=== PATIENT | female | born 1955 | race American Indian/Alaskan Native ===

== ENCOUNTER 2018-01-08 09:55 | Day surgery (SDC) | payer OTHER ==
[2018-01-08] MEDS ORDERED: Midazolam 1 MG/ML 2 ML SDV IV ONE (09:56)
[2018-01-08] MEDS ORDERED: Dexamethasone 4 MG/ML SDV IV ONE (09:56)
[2018-01-08] MEDS ORDERED: Sodium Chloride 0.9% 10 ML Syringe IV ONE (09:56)
[2018-01-08] MEDS ORDERED: Timolol Maleate 0.5% Ophth Soln 5 ML Bottle EYELF ONE (10:30)
[2018-01-08] MEDS ORDERED: Sodium Chloride 0.9% 10 ML Syringe FLUSH PRN (10:30)
[2018-01-08] MEDS ORDERED: Ondansetron 4 MG/2 ML SDV IVPUSH PRN (10:30)
[2018-01-08] MEDS ORDERED: Acetaminophen 325 MG Tab PO PRN (10:30)
[2018-01-08] MEDS ORDERED: Proparacaine 0.5% Ophth Soln 15 ML Bottle EYELF ONE (10:30)
[2018-01-08] MEDS ORDERED: Phenylephrine 10% Ophth Soln 5 ML Bot EYELF PRN (10:30)
[2018-01-08] MEDS ORDERED: Moxifloxacin 0.5% Ophth Soln 3 ML Bottle EYELF ONE (10:30)
[2018-01-08] MEDS ORDERED: Povidone-Iodine 5% Sterile Ophth Soln 30 ML Bottle EYELF ONE ×2 (10:30→11:08)
[2018-01-08] MEDS ORDERED: Cataract Ophth Solution EYELF ONE (10:30)
[2018-01-08] MEDS ORDERED: Phenylephrine 10% Ophth Soln 5 ML Bot EYELF ONE (10:30)
[2018-01-08] MEDS ORDERED: Tetracaine HCl/PF 0.5% 4 ML Bottle EYELF ONE (11:08)
[2018-01-08] MEDS ORDERED: Lidocaine 1% 30 ML SDV INJECT ONE (11:13)
[2018-01-08] MEDS ORDERED: Vancomycin 500 MG SDV EYELF ONE (11:14)
[2018-01-08] MEDS ORDERED: Balanced Salt Solution Plus Ophth Irrig 500 ML Bottle IOCULAR ONE (11:14)
[2018-01-08] MEDS ORDERED: Chondroitin Sulfate/Hyaluronate Sodium Ophth Inj 0.75 ML Syringe EYELF ONE (11:17)
[2018-01-08] MEDS ORDERED: Apraclonidine 0.5% Ophth Soln 5 ML Bot EYELF ONE (11:24)
[2018-01-08] MEDS ORDERED: Dexamethasone/Neomycin/Polymyxin B Ophth Oint 3.5 GM Tube EYELF ONE (11:25)
--- NOTE | 2018-01-08 11:45 | OR ---
DATE: 01/08/2018 PREOPERATIVE DIAGNOSIS: Visually significant mixed cataract, left eye. POSTOPERATIVE DIAGNOSIS: Visually significant mixed cataract, left eye. PROCEDURE: Extracapsular cataract extraction with intraocular lens implant, left eye. ANESTHESIA: Topical/local MAC. COMPLICATIONS: None. INDICATION: Ms. Weir was seen in the clinic with complaints of blurred vision. Her examination revealed visually significant cataract. She is symptomatic and requested cataract surgery. I explained risks including the potential for infection, retinal detachment, loss of vision, and need for additional surgery amongst others. Slit lamp examination reveals mixed nuclear and cortical cataract. We discussed implants, and she has requested a monofocal implant. OPERATIVE DESCRIPTION: After informed consent was obtained and the risks, benefits, and alternatives were explained, the patient was brought to the operative suite and topical anesthesia was administered. The patient was then prepped and draped in the sterile fashion, and attention was placed on the left eye. A sterile lid speculum was placed into the left eye to allow operative exposure. A full-thickness paracentesis was made in the temporal portion of the operative eye. Preservative-free lidocaine 0.1 mL was injected into the anterior chamber followed by viscoelastic. A full-thickness corneal incision was then made into the anterior chamber. A bent needle cystotome was used to create a small sandy in the anterior capsule. The capsulorrhexis forceps was then used to create a 360-degree curvilinear capsulorrhexis. The nucleus was then removed using a phacoemulsification handpiece, and the remaining cortical material was then removed with irrigation and aspiration handpiece. Following removal of the cortical material, the capsular bag was then inspected and noted to be free of any holes or tears. Viscoelastic was then injected into the capsular bag, and the intraocular lens was inserted into the capsular bag. The viscoelastic material was then removed from both the anterior and posterior chambers and from behind the IOL. The lens and capsular bag were then reinspected. The IOL was well centered, and the capsular bag intact. The wound and paracentesis sites were inspected and hydrated with balanced saline solution. Both were found to be self-sealing. The intraocular pressure was assessed digitally and found to be within normal range. A good red reflex was noted at the completion of the procedure. No complications occurred during the operation. At the completion of the procedure, Maxitrol, Voltaren, and Iopidine drops were placed into the operative eye. A sterile eye shield was placed over the operative eye, and the patient was transported to the postoperative recovery area having tolerated the procedure well. Postoperative instructions were given along with a postoperative appointment. The patient was advised to call with any questions or concerns. [facility] /[id number]
[2018-01-08 12:20] VITALS: BP 98/56
== END 2018-01-08 12:25 | disposition home or self-care (01) ==
LOC: DL.SDS 09:55
PROVIDERS: ATTEND Ophthalmology
DX: H25.812 Combined forms of age-related cataract, left eye (principal); I10 Essential (primary) hypertension; F17.210 Nicotine dependence, cigarettes, uncomplicated; E78.5 Hyperlipidemia, unspecified; Z79.899 Other long term (current) drug therapy; Z88.0 Allergy status to penicillin; Z88.5 Allergy status to narcotic agent; Z88.1 Allergy status to other antibiotic agents; Z88.8 Allergy status to other drugs, medicaments and biological substances
CPT/HCPCS: 66984; A9270; J1100; J2250; J3370; J7050

== ENCOUNTER 2018-11-02 00:57 | Emergency (ER) | payer OTHER ==
[2018-11-02 01:06] VITALS: BP 132/72
[2018-11-02] MEDS ORDERED: Ketorolac 30 MG/ML SDV IM ONE (01:23)
--- NOTE | 2018-11-02 01:29 | EDM.PDOC ---
ED HPI GENERAL MEDICAL PROBLEM - General Chief Complaint: Back Pain or Injury Stated Complaint: BACK PAIN [id number] Time Seen by Provider: 11/02/18 01:24 Source of Information: Reports: Patient History Limitations: Reports: No Limitations - History of Present Illness INITIAL COMMENTS - FREE TEXT/NARRATIVE: onset past week. been to PT x2 but seem to make it worse. gives h/o fibromyalgia & arthritis. denies chest pain states pain is on back between shoulders. Bladder Pain Score (Numeric/FACES): 10 - Related Data Allergies Allergy/AdvReac Type Severity Reaction Status Date / Time amoxicillin Allergy Cannot Verified 11/02/18 01:06 Remember codeine Allergy Cannot Verified 11/02/18 01:06 Remember hydroxychloroquine Allergy Itching Verified 11/02/18 01:06 [From Plaquenil] tramadol Allergy Diaphoresis Verified 11/02/18 01:06 Home Meds: Home Meds DULoxetine [Cymbalta] 60 mg PO DAILY 10/11/14 [History] Acetaminophen 650 mg PO Q6H PRN 10/16/14 [History] Cyanocobalamin (Vitamin B-12) [Cyanocobalamin Injection] 1,000 mcg INJECT ASDIRECTED 10/16/14 [History] Fish Oil [place]-3 Fatty Acids 1,000 mg PO DAILY 10/16/14 [History] Hydrocodone-Acetaminophen 5-325 2 tab PO QID PRN 10/16/14 [History] Lidocaine 5% [Lidoderm 5%] 1 patch TOP DAILY 09/06/16 [History] Clobetasol [Clobetasol 0.05%] 1 applic TOP DAILY 12/25/17 [History] Diclofenac Sodium 1 applic TOP DAILY 12/25/17 [History] Gabapentin [Neurontin] 300 mg PO TID 12/25/17 [History] Loratadine 10 mg PO DAILY 12/25/17 [History] Mometasone Furoate [Nasonex] 2 spray NASBOTH DAILY PRN 12/25/17 [History] atorvaSTATin [Lipitor] 20 mg PO BEDTIME 12/25/17 [History] cycloSPORINE [Restasis] 1 drop EYEBOTH BID 12/25/17 [History] Lisinopril/Hydrochlorothiazide [Lisinopril-HCTZ 10-12.5 MG] 1 tab PO DAILY 12/30 [History] Past Medical History HEENT History: Reports: Cataract, Impaired Vision Cardiovascular History: Reports: High Cholesterol, Hypertension Respiratory History: Reports: None Gastrointestinal History: Reports: None Genitourinary History: Reports: None 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 Neurological History: Reports: None Psychiatric History: Reports: None Endocrine/Metabolic History: Reports: None Hematologic History: Reports: B12 Deficiency Immunologic History: Reports: SLE, Other (See Below) Other Immunologic History: Lupus test #'s were high. Oncologic (Cancer) History: Reports: None Dermatologic History: Reports: None - Infectious Disease History Infectious Disease History: Reports: Chicken Pox - Past Surgical History Head Surgeries/Procedures: Reports: None HEENT Surgical History: Reports: Cataract Surgery, Other (See Below) Other HEENT Surgeries/Procedures: eye lid surg Cardiovascular Surgical History: Reports: None Respiratory Surgical History: Reports: None GI Surgical History: Reports: Appendectomy Female Surgical History: Reports: Breast Biopsy, Hysterectomy Musculoskeletal Surgical History: Reports: None Dermatological Surgical History: Reports: None Social & Family History - Family History Family Medical History: Noncontributory - Tobacco Use Smoking Status *Q: Heavy Tobacco Smoker Years of Tobacco use: 20 Packs/Tins Daily: 0.5 - Caffeine Use Caffeine Use: Reports: Coffee Other Caffeine Use: 4 cups daily - Recreational Drug Use Recreational Drug Use: No ED ROS GENERAL - Review of Systems Review Of Systems: ROS reveals no pertinent complaints other than HPI. ED EXAM, UPPER BACK/NECK PAIN - Physical Exam Exam: See Below Exam Limited By: No Limitations General Appearance: Alert, WD/WN, Mild Distress, Other (discomfort) Ears Exam: Hearing Grossly Normal Throat/Mouth Exam: Normal Voice, No Airway Compromise Head Exam: Atraumatic Neck Exam: Full Range of Motion, Normal Alignment Nexus Criteria: No: Posterior, Midline Cervical Tenderness, Evidence of Intoxication, Altered Level of Consciousness, Focal Neurological Deficit, Painful Distraction Injuries Cardiovascular/Respiratory: Regular Rate, Rhythm, No Respiratory Distress GI/Abdominal: Soft, Non-Tender Back Exam: Muscle Spasm, Paraspinal Tenderness, Other (interscap region) Neurologic: No Motor/Sensory Deficits, Alert, Oriented x 3 Psychiatric: Tearful Skin Exam: Normal Color, Warm/Dry Lymphatic: No Adenopathy Course - Vital Signs Last Recorded V/S: Last Vital Signs Temp 36.3 C 11/02/18 01:02 Pulse 66 11/02/18 01:02 Resp 16 11/02/18 01:02 BP 132/72 11/02/18 01:02 Pulse Ox 97 11/02/18 01:02 - Orders/Labs/Meds Orders: Active Orders 24 hr Category Date Time Status Orphenadrine [Norflex] Med 11/02/18 01:30 Active 60 mg IM Q12H Medication Orders Orphenadrine Citrate (Norflex) 60 mg IM Q12H ONESIMO Last Admin: 11/02/18 01:31 Dose: 60 mg Meds: Medications Generic Name Dose Route Start Last Admin Trade Name Freq PRN Reason Stop Dose Admin Orphenadrine Citrate 60 mg 11/02/18 01:30 11/02/18 01:31 Norflex IM 60 mg Q12H ONESIMO Administration Discontinued Medications Generic Name Dose Route Start Last Admin Trade Name Freq PRN Reason Stop Dose Admin Ketorolac Tromethamine 30 mg 11/02/18 01:23 11/02/18 01:32 Toradol IM 11/02/18 01:24 30 mg ONETIME ONE Administration Departure - Departure Time of Disposition: 01:40 Disposition: Home, Self-Care 01 Condition: Fair Clinical Impression: Spasm of back muscles - Discharge Information Instructions: Muscle Cramps and Spasms, [id number] Forms: ED Department Discharge Additional Instructions: 1) try ice or heat to sore areas 2) follow up at clinic 3) recheck as needed - My Orders Last 24 Hours: My Active Orders 11/02/18 01:30 Orphenadrine [Norflex] 60 mg IM Q12H - Assessment/Plan Last 24 Hours: My Active Orders 11/02/18 01:30 Orphenadrine [Norflex] 60 mg IM Q12H
== END 2018-11-02 01:40 | disposition home or self-care (01) ==
LOC: DL.ED 00:57
DX: M62.830 Muscle spasm of back (principal); I10 Essential (primary) hypertension; F17.210 Nicotine dependence, cigarettes, uncomplicated; Z88.5 Allergy status to narcotic agent; Z88.8 Allergy status to other drugs, medicaments and biological substances; Z88.1 Allergy status to other antibiotic agents; Z79.899 Other long term (current) drug therapy
CPT/HCPCS: 96372; 99283; J1885; J2360

== ENCOUNTER 2019-07-30 15:30 | Emergency (ER) | payer OTHER ==
--- NOTE | 2019-07-30 16:03 | EDM.PDOC ---
ED HPI GENERAL MEDICAL PROBLEM - General Stated Complaint: BACK PAIN Time Seen by Provider: 07/30/19 15:45 Source of Information: Reports: Patient History Limitations: Reports: No Limitations - History of Present Illness INITIAL COMMENTS - FREE TEXT/NARRATIVE: This 64 yo female patient reports to the ED with lower back pain that started this morning. The patient reports she has chronic low back pain and fibromyalgia. The patient currently takes Hydrocodone and Gabapentin. The patient reports she has an appointment with pain management next week. The patient reports her current pain is higher in her back than normal. The patient reports no recent injuries. The patient did not attempt to get into the clinic. The patient reports no urinary frequency, pain or hesitancy. Onset: Today Onset Date: 07/30/19 Onset Time: 10:30 Duration: Intermittent Location: Reports: Back Quality: Reports: Ache Severity: Moderate Improves with: Reports: None Worsens with: Reports: None Context: Reports: Other Associated Symptoms: Reports: No Other Symptoms - Related Data Allergies Allergy/AdvReac Type Severity Reaction Status Date / Time amoxicillin Allergy Cannot Verified 11/02/18 01:06 Remember clavulanic acid Allergy Nausea Verified 01/08/19 08:23 [From Augmentin] codeine Allergy Cannot Verified 11/02/18 01:06 Remember hydroxychloroquine Allergy Itching Verified 11/02/18 01:06 [From Plaquenil] simvastatin [From Zocor] Allergy Itching Verified 01/08/19 08:23 tramadol Allergy Diaphoresis Verified 11/02/18 01:06 Home Meds: Home Meds DULoxetine [Cymbalta] 60 mg PO DAILY 10/11/14 [History] Acetaminophen 650 mg PO Q6H PRN 10/16/14 [History] Cyanocobalamin (Vitamin B-12) [Cyanocobalamin Injection] 1,000 mcg INJECT ASDIRECTED 10/16/14 [History] Fish Oil [place]-3 Fatty Acids 1,000 mg PO DAILY 10/16/14 [History] Hydrocodone-Acetaminophen 5-325 2 tab PO QID PRN 10/16/14 [History] Lidocaine 5% [Lidoderm 5%] 1 patch TOP DAILY 09/06/16 [History] Clobetasol [Clobetasol 0.05%] 1 applic TOP DAILY 12/25/17 [History] Diclofenac Sodium 1 applic TOP DAILY 12/25/17 [History] Gabapentin [Neurontin] 300 mg PO TID 12/25/17 [History] Loratadine 10 mg PO DAILY 12/25/17 [History] Mometasone Furoate [Nasonex] 2 spray NASBOTH DAILY PRN 12/25/17 [History] atorvaSTATin [Lipitor] 20 mg PO BEDTIME 12/25/17 [History] cycloSPORINE [Restasis] 1 drop EYEBOTH BID 12/25/17 [History] Lisinopril/Hydrochlorothiazide [Lisinopril-HCTZ 10-12.5 MG] 1 tab PO DAILY 12/30 [History] Past Medical History HEENT History: Reports: Cataract, Impaired Vision Cardiovascular History: Reports: High Cholesterol, Hypertension Respiratory History: Reports: None Gastrointestinal History: Reports: None Genitourinary History: Reports: None 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 Neurological History: Reports: None Psychiatric History: Reports: None Endocrine/Metabolic History: Reports: None Hematologic History: Reports: B12 Deficiency Immunologic History: Reports: SLE, Other (See Below) Other Immunologic History: Lupus test #'s were high. Oncologic (Cancer) History: Reports: None Dermatologic History: Reports: None - Infectious Disease History Infectious Disease History: Reports: Chicken Pox - Past Surgical History Head Surgeries/Procedures: Reports: None HEENT Surgical History: Reports: Cataract Surgery, Other (See Below) Other HEENT Surgeries/Procedures: eye lid surg Cardiovascular Surgical History: Reports: None Respiratory Surgical History: Reports: None GI Surgical History: Reports: Appendectomy Female Surgical History: Reports: Breast Biopsy, Hysterectomy Musculoskeletal Surgical History: Reports: None Dermatological Surgical History: Reports: None Social & Family History - Family History Family Medical History: Noncontributory - Caffeine Use Caffeine Use: Reports: Coffee Other Caffeine Use: 4 cups daily ED ROS GENERAL - Review of Systems Review Of Systems: Comprehensive ROS is negative, except as noted in HPI. ED EXAM,LOWER BACK PAIN/INJURY - Physical Exam Exam: See Below Exam Limited By: No Limitations General Appearance: Alert, WD/WN, Mild Distress Eye Exam: Bilateral Eye: EOMI, Normal Inspection, PERRL Ears: Normal External Exam, Normal Canal, Hearing Grossly Normal, Normal TMs Nose: Normal Inspection, Normal Mucosa, No Blood Throat/Mouth: Normal Inspection, Normal Lips, Normal Teeth, Normal Gums, Normal Oropharynx, Normal Voice, No Airway Compromise Head: Atraumatic, Normocephalic Neck: Normal Inspection, Supple, Non-Tender, Full Range of Motion Respiratory/Chest: No Respiratory Distress, Lungs Clear, Normal Breath Sounds, No Accessory Muscle Use, Chest Non-Tender Cardiovascular: Normal Peripheral Pulses, Regular Rate, Rhythm, No Edema, No Gallop, No JVD, No Murmur, No Rub GI/Abdominal: Normal Bowel Sounds, Soft, Non-Tender, No Organomegaly, No Distention, No Abnormal Bruit, No Mass (Female) Exam: Deferred Rectal (Female) Exam: Deferred Back Exam: Vertebral Tenderness (mid back ) Extremities: Normal Inspection, Normal Range of Motion, Non-Tender, No Pedal Edema, Normal Capillary Refill Neurological: Alert, Normal Mood/Affect, Normal Dorsiflexion, CN II-XII Intact, Normal Plantar Flexion, Normal Gait, Normal Reflexes, No Motor/Sensory Deficits , Oriented x 3 Psychiatric: Normal Affect, Normal Mood Skin Exam: Warm, Dry, Intact, Normal Color, No Rash Lymphatic: No Adenopathy Course - Orders/Labs/Meds Orders: Active Orders 24 hr Category Date Time Status COMPREHENSIVE METABOLIC PN,CMP [CHEM] Urgent Lab 07/30/19 15:32 Ordered DRUG SCREEN URINE BIORAD [URCHEM] Stat Lab 07/30/19 15:36 Ordered UA RFX CODY AND CULT IF INDIC [URIN] Urgent Lab 07/30/19 15:32 Ordered Labs: Laboratory Tests 07/30/19 Range/Units 15:45 WBC 8.5 (5.0-10.0) 10^3/uL RBC 4.58 (4.2-5.4) 10^6/uL Hgb 13.4 (12.0-16.0) g/dL Hct 41.1 (37.0-47.0) % MCV 89.7 D (80-100) fL MCH 29.3 (27.0-34.0) pg MCHC 32.6 L (33.0-35.0) g/dL Plt Count 175 D (150-450) 10^3/uL Neut % (Auto) 61.7 (42.2-75.2) % Lymph % (Auto) 29.4 (20.5-50.1) % [place] % (Auto) 6.1 (2-8) % Eos % (Auto) 2.7 (1.0-3.0) % Baso % (Auto) 0.1 (0.0-1.0) % Departure - Departure Time of Disposition: 16:52 Disposition: Home, Self-Care 01 Condition: Fair Clinical Impression: Acute exacerbation of chronic low back pain - Discharge Information *PRESCRIPTION DRUG MONITORING PROGRAM REVIEWED*: Not Applicable *COPY OF PRESCRIPTION DRUG MONITORING REPORT IN PATIENT NAI: Not Applicable Instructions: Acute Back Pain, Adult, Chronic Back Pain, [id number] Care Plan Goals: The patient was advised of the examination results during the visit. The patient was discharged with scripts for Prednisone (20 mg) #10 to take 2 by mouth for 5 days. The patient should continue with her current medications as prescribed. If the patient has any additional symptoms or concerns, the patient should either return to the emergency department or visit his primary care facility. - My Orders Last 24 Hours: My Active Orders 07/30/19 15:32 COMPREHENSIVE METABOLIC PN,CMP [CHEM] Urgent UA RFX CODY AND CULT IF INDIC [URIN] Urgent 07/30/19 15:36 DRUG SCREEN URINE BIORAD [URCHEM] Stat - Assessment/Plan Last 24 Hours: My Active Orders 07/30/19 15:32 COMPREHENSIVE METABOLIC PN,CMP [CHEM] Urgent UA RFX CODY AND CULT IF INDIC [URIN] Urgent 07/30/19 15:36 DRUG SCREEN URINE BIORAD [URCHEM] Stat
[2019-07-30 16:10] LABS: ANION GAP 11.7; CHLORIDE,CL 104 mmol/L (101-111); SODIUM,NA 136 mmol/L (135-145)
--- NOTE | 2019-07-30 16:30 | CR ---
EXAMINATION: Lumbar Spine 2 or 3V SEX: Female AGE: 64 years CLINICAL HISTORY: 64-year-old female complaining of low back pain. Interpretation: Generalized osteopenia consistent with age and gender. Some marginal spondylosis. Intervertebral disc space narrowing L1-2 with endplate sclerosis and marginal spondylosis (subtle relative narrowing of the L3-4 and L5-S1 levels (. No sign of congenital abnormality, pathologic skeletal lesion, lumbar fracture or dislocation. Symmetric normal spacing of the SI and hip joint without arthritic degenerative change. 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
[2019-07-30 17:52] VITALS: BP 125/74; PULSE 86
== END 2019-07-30 16:59 | disposition home or self-care (01) ==
LOC: DL.ED 15:30
DX: M54.5 Low back pain (principal); G89.29 Other chronic pain; I10 Essential (primary) hypertension; E78.00 Pure hypercholesterolemia, unspecified; Z79.899 Other long term (current) drug therapy; Z88.5 Allergy status to narcotic agent; Z88.1 Allergy status to other antibiotic agents; Z88.6 Allergy status to analgesic agent
CPT/HCPCS: 36415; 72100; 80053; 80305-QW; 81001; 85025; 99283; 99283-25

== ENCOUNTER 2019-11-30 19:26 | Emergency (ER) | payer OTHER ==
[2019-11-30 20:03] VITALS: BP 118/62; PULSE 97
[2019-11-30] MEDS ORDERED: Lidocaine 1% 30 ML SDV INJECT ONE (21:24)
[2019-11-30] MEDS ORDERED: Doxycycline 100 MG Cap PO ONE (21:24)
--- NOTE | 2019-11-30 22:04 | EDM.PDOC ---
ED HPI GENERAL MEDICAL PROBLEM - General Chief Complaint: Skin Complaint Stated Complaint: finger infected Time Seen by Provider: 11/30/19 20:20 Source of Information: Reports: Patient History Limitations: Reports: No Limitations - History of Present Illness INITIAL COMMENTS - FREE TEXT/NARRATIVE: ED with c/o 2 day hx of infected finger ( right index). Denies injury has been soaking without improvement. States tried 2 of her hydrocodone this elayne to relieve pain and didn't help. Denies previous skin infections. Non smoker, Denies Diabetes hx. No fever or chills. Right Finger-Index Pain Score (Numeric/FACES): 8 - Related Data Allergies Allergy/AdvReac Type Severity Reaction Status Date / Time amoxicillin Allergy Cannot Verified 11/30/19 19:47 Remember clavulanic acid Allergy Nausea Verified 11/30/19 19:47 [From Augmentin] codeine Allergy Cannot Verified 11/30/19 19:47 Remember hydroxychloroquine Allergy Itching Verified 11/30/19 19:47 [From Plaquenil] simvastatin [From Zocor] Allergy Itching Verified 11/30/19 19:47 tramadol Allergy Diaphoresis Verified 11/30/19 19:47 Home Meds: Home Meds DULoxetine [Cymbalta] 60 mg PO DAILY 10/11/14 [History] Acetaminophen 650 mg PO Q6H PRN 10/16/14 [History] Cyanocobalamin (Vitamin B-12) [Cyanocobalamin Injection] 1,000 mcg INJECT ASDIRECTED 10/16/14 [History] Fish Oil [place]-3 Fatty Acids 1,000 mg PO DAILY 10/16/14 [History] Hydrocodone-Acetaminophen 5-325 2 tab PO QID PRN 10/16/14 [History] Lidocaine 5% [Lidoderm 5%] 1 patch TOP DAILY 09/06/16 [History] Clobetasol [Clobetasol 0.05%] 1 applic TOP DAILY 12/25/17 [History] Diclofenac Sodium 1 applic TOP DAILY 12/25/17 [History] Gabapentin [Neurontin] 300 mg PO TID 12/25/17 [History] Loratadine 10 mg PO DAILY 12/25/17 [History] Mometasone Furoate [Nasonex] 2 spray NASBOTH DAILY PRN 12/25/17 [History] atorvaSTATin [Lipitor] 20 mg PO BEDTIME 12/25/17 [History] cycloSPORINE [Restasis] 1 drop EYEBOTH BID 12/25/17 [History] Lisinopril/Hydrochlorothiazide [Lisinopril-HCTZ 10-12.5 MG] 1 tab PO DAILY 12/30 [History] Past Medical History HEENT History: Reports: Cataract, Impaired Vision Cardiovascular History: Reports: High Cholesterol, Hypertension Respiratory History: Reports: None Gastrointestinal History: Reports: None Genitourinary History: Reports: None 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 Neurological History: Reports: None Psychiatric History: Reports: None Endocrine/Metabolic History: Reports: None Hematologic History: Reports: B12 Deficiency Immunologic History: Reports: SLE, Other (See Below) Other Immunologic History: Lupus test #'s were high. Oncologic (Cancer) History: Reports: None Dermatologic History: Reports: None - Infectious Disease History Infectious Disease History: Reports: Chicken Pox - Past Surgical History Head Surgeries/Procedures: Reports: None HEENT Surgical History: Reports: Cataract Surgery, Other (See Below) Other HEENT Surgeries/Procedures: eye lid surg Cardiovascular Surgical History: Reports: None Respiratory Surgical History: Reports: None GI Surgical History: Reports: Appendectomy Female Surgical History: Reports: Breast Biopsy, Section, Hysterectomy Musculoskeletal Surgical History: Reports: None Dermatological Surgical History: Reports: None Social & Family History - Family History Family Medical History: Noncontributory - Tobacco Use Smoking Status *Q: Current Every Day Smoker Years of Tobacco use: 25 Packs/Tins Daily: 0.5 - Caffeine Use Caffeine Use: Reports: None Other Caffeine Use: 4 cups daily - Recreational Drug Use Recreational Drug Use: No ED ROS GENERAL - Review of Systems Review Of Systems: Comprehensive ROS is negative, except as noted in HPI. ED EXAM, SKIN/RASH Exam: See Below Exam Limited By: No Limitations General Appearance: Alert, Mild Distress Eye Exam: Bilateral Eye: EOMI Ears: Normal External Exam Nose: Normal Inspection Throat/Mouth: Normal Inspection Head: Atraumatic, Normocephalic Neck: Normal Inspection Respiratory/Chest: No Respiratory Distress Cardiovascular: Normal Peripheral Pulses, Regular Rate, Rhythm Extremities: Increased Warmth (distal right index) Neurological: Alert, Oriented, Normal Cognition Psychiatric: Normal Affect, Normal Mood Skin: Warm, Dry, Other (redness distal right index finger, lower lateral nail bed loose.) Characteristics: Bullous, Erythematous Associated features: Warmth, Tenderness, Swelling (mild). No: Crusting ED SKIN PROCEDURES - I&D Skin Prep: Providone-Iodine (Betadine) Local Anesthesia: Lidocaine: 1% Plain Local Anesthetic Volume: 1cc Area Incised With: 15 Blade Drainage: Purulent Probed to Break Up Loculations: No Sterile Dressing: Adhesive Dressing Complications: No Course - Vital Signs Last Recorded V/S: Last Vital Signs Temp 97.5 F 11/30/19 19:47 Pulse 97 11/30/19 19:47 Resp 16 11/30/19 19:47 BP 118/62 11/30/19 19:47 Pulse Ox 98 11/30/19 19:47 - Orders/Labs/Meds Orders: Active Orders 24 hr Category Date Time Status Fingers Second Digit Rt F6 [CR] Urgent Exams 11/30/19 21:23 Taken CULTURE WOUND [RM] Stat Lab 11/30/19 21:47 Received Meds: Medications Discontinued Medications Generic Name Dose Route Start Last Admin Trade Name José Miguelq PRN Reason Stop Dose Admin Doxycycline Hyclate 100 mg 11/30/19 21:24 11/30/19 21:34 Vibramycin PO 11/30/19 21:25 100 mg ONETIME ONE Administration Lidocaine HCl 30 ml 11/30/19 21:24 11/30/19 21:34 Xylocaine-Mpf 1% INJECT 11/30/19 21:25 30 ml ONETIME ONE Administration Departure - Departure Time of Disposition: 21:56 Disposition: Home, Self-Care 01 Condition: Good Clinical Impression: Infection of fingernail of right hand - Discharge Information *PRESCRIPTION DRUG MONITORING PROGRAM REVIEWED*: No Instructions: Fingertip Infection, Paronychia, [id number] Forms: ED Department Discharge Additional Instructions: warm soaks with soapy water 4 times daily keep area covered elevate slightly to decrease throbbing recheck clinic later week sooner if increased redness and swelling doxycycline 100mg one twice daily for 10 days Sepsis Event Note - Evaluation Sepsis Screening Result: No Definite Risk - Focused Exam Vital Signs: Vital Signs Temp Pulse Resp BP Pulse Ox 11/30/19 19:47 97.5 F 97 16 118/62 98 Date Exam was Performed: 12/01/19 Time Exam was Performed: 01:44 - My Orders Last 24 Hours: My Active Orders 11/30/19 21:23 Fingers Second Digit Rt F6 [CR] Urgent 11/30/19 21:47 CULTURE WOUND [RM] Stat - Assessment/Plan Last 24 Hours: My Active Orders 11/30/19 21:23 Fingers Second Digit Rt F6 [CR] Urgent 11/30/19 21:47 CULTURE WOUND [RM] Stat
== END 2019-11-30 22:02 | disposition home or self-care (01) ==
LOC: DL.ED 19:26
DX: L03.011 Cellulitis of right finger (principal); E78.00 Pure hypercholesterolemia, unspecified; I10 Essential (primary) hypertension; M32.9 Systemic lupus erythematosus, unspecified; F17.210 Nicotine dependence, cigarettes, uncomplicated; Z88.1 Allergy status to other antibiotic agents; Z88.8 Allergy status to other drugs, medicaments and biological substances; Z88.5 Allergy status to narcotic agent
CPT/HCPCS: 26010; 73140; 87070; 87077; 87186; 99283; A9270; J2001

== ENCOUNTER 2019-12-12 23:58 | Emergency (ER) | payer OTHER ==
[2019-12-13 00:11] VITALS: BP 134/57; PULSE 73
[2019-12-13] MEDS ORDERED: methylPREDNISolone Sodium Succinate 125 MG/2 ML SDV IVPUSH ONE (00:46)
--- NOTE | 2019-12-13 01:05 | EDM.PDOC ---
ED HPI GENERAL MEDICAL PROBLEM - General Chief Complaint: Allergic Reaction Stated Complaint: REACTION TO MEDICATION Time Seen by Provider: 12/13/19 01:02 Source of Information: Reports: Patient History Limitations: Reports: No Limitations - History of Present Illness INITIAL COMMENTS - FREE TEXT/NARRATIVE: took one dose of bactrim for finger infection and broke out in itchy rash all over. 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 Hand Pain Score (Numeric/FACES): 3 - Related Data Allergies Allergy/AdvReac Type Severity Reaction Status Date / Time amoxicillin Allergy Cannot Verified 11/30/19 19:47 Remember clavulanic acid Allergy Nausea Verified 11/30/19 19:47 [From Augmentin] codeine Allergy Cannot Verified 11/30/19 19:47 Remember hydroxychloroquine Allergy Itching Verified 11/30/19 19:47 [From Plaquenil] simvastatin [From Zocor] Allergy Itching Verified 11/30/19 19:47 Sulfa (Sulfonamide Allergy Itching Verified 12/13/19 00:11 Antibiotics) tramadol Allergy Diaphoresis Verified 11/30/19 19:47 Home Meds: Home Meds DULoxetine [Cymbalta] 60 mg PO DAILY 10/11/14 [History] Acetaminophen 650 mg PO Q6H PRN 10/16/14 [History] Fish Oil [place]-3 Fatty Acids 1,000 mg PO DAILY 10/16/14 [History] Hydrocodone-Acetaminophen 5-325 1 tab PO QID PRN 10/16/14 [History] Lidocaine 5% [Lidoderm 5%] 1 patch TOP DAILY 09/06/16 [History] Clobetasol [Clobetasol 0.05%] 1 applic TOP DAILY 12/25/17 [History] Gabapentin [Neurontin] 300 mg PO TID 12/25/17 [History] Mometasone Furoate [Nasonex] 2 spray NASBOTH DAILY PRN 12/25/17 [History] atorvaSTATin [Lipitor] 20 mg PO BEDTIME 12/25/17 [History] cycloSPORINE [Restasis] 1 drop EYEBOTH BID 12/25/17 [History] Lisinopril/Hydrochlorothiazide [Lisinopril-HCTZ 10-12.5 MG] 1 tab PO DAILY 12/30 [History] Celecoxib [CeleBREX] 200 mg PO BID 12/13/19 [History] Cholecalciferol (Vitamin D3) [Vitamin D3] 1,000 unit PO DAILY 12/13/19 [History] Past Medical History HEENT History: Reports: Cataract, Impaired Vision Cardiovascular History: Reports: High Cholesterol, Hypertension Respiratory History: Reports: None Gastrointestinal History: Reports: None Genitourinary History: Reports: None 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 Neurological History: Reports: None Psychiatric History: Reports: None Endocrine/Metabolic History: Reports: None Hematologic History: Reports: B12 Deficiency, Blood Transfusion(s) Immunologic History: Reports: SLE, Other (See Below) Other Immunologic History: Lupus test #'s were high. Oncologic (Cancer) History: Reports: None Dermatologic History: Reports: None, Psoriasis - Infectious Disease History Infectious Disease History: Reports: Chicken Pox - Past Surgical History Head Surgeries/Procedures: Reports: None HEENT Surgical History: Reports: Cataract Surgery, Other (See Below) Other HEENT Surgeries/Procedures: eye lid surg Cardiovascular Surgical History: Reports: None Respiratory Surgical History: Reports: None GI Surgical History: Reports: Appendectomy Female Surgical History: Reports: Breast Biopsy, Section, Hysterectomy Musculoskeletal Surgical History: Reports: None Dermatological Surgical History: Reports: None Social & Family History - Family History Family Medical History: Noncontributory - Tobacco Use Smoking Status *Q: Current Every Day Smoker Years of Tobacco use: 20 Packs/Tins Daily: 0.5 - Caffeine Use Caffeine Use: Reports: Coffee Other Caffeine Use: 4 cups daily - Recreational Drug Use Recreational Drug Use: No ED ROS ALLERGIC REACTION - Review of Systems Review Of Systems: Comprehensive ROS is negative, except as noted in HPI. ED EXAM GENERAL NO PERIP PULSE - Physical Exam Exam: See Below Exam Limited By: No Limitations General Appearance: Alert, WD/WN, Mild Distress, Other (generalized itch) Ears: Hearing Grossly Normal Throat/Mouth: Normal Voice, No Airway Compromise Head: Atraumatic Neck: Non-Tender, Full Range of Motion Respiratory/Chest: No Respiratory Distress, Lungs Clear, Normal Breath Sounds Cardiovascular: Regular Rate, Rhythm GI/Abdominal: Soft, Non-Tender Neurological: Alert, Oriented, Normal Cognition, Normal Gait, No Motor/Sensory Deficits Psychiatric: Tearful Skin Exam: Rash. No: Excoriations, Lymphangitis Lymphatic: No Adenopathy Course - Vital Signs Last Recorded V/S: Last Vital Signs Temp 35.7 C L 12/13/19 00:03 Pulse 73 12/13/19 00:03 Resp 14 12/13/19 00:03 BP 134/57 L 12/13/19 00:03 Pulse Ox 100 12/13/19 00:03 - Orders/Labs/Meds Meds: Medications Discontinued Medications Generic Name Dose Route Start Last Admin Trade Name Caterina PRN Reason Stop Dose Admin Clindamycin HCl 150 mg 12/13/19 01:10 12/13/19 01:18 Cleocin PO 12/13/19 01:11 150 mg ONETIME ONE Administration Methylprednisolone Sodium Succinate 125 mg 12/13/19 00:46 12/13/19 00:52 Solu-Medrol IVPUSH 12/13/19 00:47 125 mg ONETIME ONE Administration Departure - Departure Time of Disposition: 01:20 Disposition: Home, Self-Care 01 Condition: Good Clinical Impression: Medication reaction Qualifiers: Encounter type: initial encounter Qualified Code(s): T50.905A - Adverse effect of unspecified drugs, medicaments and biological substances, initial encounter - Discharge Information Instructions: Drug Allergy, [id number] Referrals: PCP,None [Ordering Only Provider] - Forms: ED Department Discharge Additional Instructions: 1) do not take sulphur meds 2) continue benadryl for itch 3) follow up at clinic 4) stop doxycycline rx given; medrol dospak clindamycin 150mg qid x 40 Sepsis Event Note - Evaluation Sepsis Screening Result: No Definite Risk - Focused Exam Date Exam was Performed: 12/13/19 Time Exam was Performed: 18:53
[2019-12-13] MEDS ORDERED: Clindamycin HCl 150 MG Cap PO ONE (01:10)
== END 2019-12-13 01:20 | disposition home or self-care (01) ==
LOC: DL.ED 23:58
DX: L27.0 Generalized skin eruption due to drugs and medicaments taken internally (principal); T36.8X5A Adverse effect of other systemic antibiotics, initial encounter; E78.00 Pure hypercholesterolemia, unspecified; I10 Essential (primary) hypertension; M19.90 Unspecified osteoarthritis, unspecified site; M32.9 Systemic lupus erythematosus, unspecified; F17.210 Nicotine dependence, cigarettes, uncomplicated; Z88.1 Allergy status to other antibiotic agents; Z88.5 Allergy status to narcotic agent; Z88.2 Allergy status to sulfonamides; Z79.899 Other long term (current) drug therapy
CPT/HCPCS: 96374; 99283; A9270; J2930

== ENCOUNTER 2020-04-23 21:10 | Emergency (ER) | payer OTHER ==
[2020-04-23] MEDS ORDERED: Doxycycline Monohydrate 100 MG Cap PO ONE (21:11)
[2020-04-23 21:17] VITALS: BP 116/73; PULSE 99
[2020-04-23 21:57] LABS: ANION GAP 11.8 mEq/L (7-13); CHLORIDE,CL 105 mmol/L (98-107); SODIUM,NA 140 mmol/L (136-145)
[2020-04-23] MEDS ORDERED: diphenhydrAMINE 50 MG/ML SDV IVPUSH ONE (22:01)
[2020-04-23] MEDS ORDERED: fentaNYL 100 MCG/2 ML SDV IVPUSH ONE (22:02)
[2020-04-23] MEDS ORDERED: Bacitracin Oint 1 GM U/D Packet TOP ONE (22:03)
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
[2020-04-24] MEDS ORDERED: Doxycycline Monohydrate 100 MG Cap ONE (00:10)
== END 2020-04-24 00:13 | disposition home or self-care (01) ==
LOC: DL.ED 21:10
DX: T22.221A Burn of second degree of right elbow, initial encounter (principal); T22.20XA Burn of second degree of shoulder and upper limb, except wrist and hand, unspecified site, initial encounter; L08.9 Local infection of the skin and subcutaneous tissue, unspecified; I10 Essential (primary) hypertension; E78.00 Pure hypercholesterolemia, unspecified; Z88.1 Allergy status to other antibiotic agents; Z88.5 Allergy status to narcotic agent; Z88.2 Allergy status to sulfonamides; Z88.8 Allergy status to other drugs, medicaments and biological substances; F17.210 Nicotine dependence, cigarettes, uncomplicated; Z86.19 Personal history of other infectious and parasitic diseases; Z90.49 Acquired absence of other specified parts of digestive tract; Z90.710 Acquired absence of both cervix and uterus; Z79.899 Other long term (current) drug therapy; Z86.14 Personal history of Methicillin resistant Staphylococcus aureus infection; X13.1XXA Other contact with steam and other hot vapors, initial encounter
CPT/HCPCS: 16020; 36415; 80053; 83605; 85025; 87040; 87070; 87077; 87186; 87205; 96365; 96375; 99283; A9270; J1200; J3010; J3370; J7050

== ENCOUNTER 2021-07-08 12:56 | Emergency (ER) | payer OTHER ==
[2021-07-08 13:14] VITALS: BP 97/64; PULSE 88
--- NOTE | 2021-07-08 13:22 | EDM.PDOC ---
ED HPI GENERAL MEDICAL PROBLEM - General Chief Complaint: Respiratory Problem Stated Complaint: SOB Time Seen by Provider: 07/08/21 13:19 Source of Information: Reports: Patient, RN, RN Notes Reviewed History Limitations: Reports: No Limitations - History of Present Illness INITIAL COMMENTS - FREE TEXT/NARRATIVE: Pt presents to ED via POV with c/o SOB and cough. Pt states symptoms started yesterday. She says she has been coughing green phlegm. Pt does attest to chills. Denies fever, chest pain, lightheadedness, increasing edema, or orthopnea. Has been exposed to family member(s) with respiratory illness symptoms. Pt states she has been taking her pain pills without relief of body aches. Onset Date: 07/07/21 Duration: Constant Location: Reports: Chest, Generalized Quality: Reports: Ache Severity: Moderate Improves with: Reports: None Worsens with: Reports: None Associated Symptoms: Reports: No Other Symptoms - Related Data Allergies Allergy/AdvReac Type Severity Reaction Status Date / Time amoxicillin Allergy Cannot Verified 07/08/21 13:11 Remember clavulanic acid Allergy Nausea Verified 07/08/21 13:11 [From Augmentin] codeine Allergy Cannot Verified 07/08/21 13:11 Remember hydroxychloroquine Allergy Itching Verified 07/08/21 13:11 [From Plaquenil] simvastatin [From Zocor] Allergy Itching Verified 07/08/21 13:11 Sulfa (Sulfonamide Allergy Itching Verified 07/08/21 13:11 Antibiotics) tramadol Allergy Diaphoresis Verified 07/08/21 13:11 Home Meds: Home Meds DULoxetine [Cymbalta] 60 mg PO DAILY 10/11/14 [History] Acetaminophen 650 mg PO Q6H PRN 10/16/14 [History] Fish Oil [place]-3 Fatty Acids 1,000 mg PO DAILY 10/16/14 [History] Hydrocodone-Acetaminophen 5-325 1 tab PO QID PRN 10/16/14 [History] Lidocaine 5% [Lidoderm 5%] 1 patch TOP DAILY 09/06/16 [History] Clobetasol [Clobetasol 0.05%] 1 applic TOP DAILY 12/25/17 [History] Gabapentin [Neurontin] 300 mg PO TID 12/25/17 [History] Mometasone Furoate [Nasonex] 2 spray NASBOTH DAILY PRN 12/25/17 [History] atorvaSTATin [Lipitor] 20 mg PO BEDTIME 12/25/17 [History] cycloSPORINE [Restasis] 1 drop EYEBOTH BID 12/25/17 [History] Lisinopril/Hydrochlorothiazide [Lisinopril-HCTZ 10-12.5 MG] 1 tab PO DAILY 12/30/17 [History] Celecoxib [CeleBREX] 200 mg PO BID 12/13/19 [History] Cholecalciferol (Vitamin D3) [Vitamin D3] 1,000 unit PO DAILY 12/13/19 [History] Past Medical History HEENT History: Reports: Cataract, Impaired Vision Cardiovascular History: Reports: High Cholesterol, Hypertension Respiratory History: Reports: None Gastrointestinal History: Reports: None Genitourinary History: Reports: None 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 Neurological History: Reports: None Psychiatric History: Reports: None Endocrine/Metabolic History: Reports: None Hematologic History: Reports: B12 Deficiency, Blood Transfusion(s) Immunologic History: Reports: SLE, Other (See Below) Other Immunologic History: Lupus test #'s were high. Oncologic (Cancer) History: Reports: None Dermatologic History: Reports: None, Psoriasis - Infectious Disease History Infectious Disease History: Reports: Chicken Pox - Past Surgical History Head Surgeries/Procedures: Reports: None HEENT Surgical History: Reports: Cataract Surgery, Other (See Below) Other HEENT Surgeries/Procedures: eye lid surg Cardiovascular Surgical History: Reports: None Respiratory Surgical History: Reports: None GI Surgical History: Reports: Appendectomy Female Surgical History: Reports: Breast Biopsy, Section, Hysterectomy Musculoskeletal Surgical History: Reports: None Dermatological Surgical History: Reports: None Social & Family History - Family History Family Medical History: No Pertinent Family History - Caffeine Use Caffeine Use: Reports: Coffee Other Caffeine Use: 4 cups daily - Living Situation & Occupation Living situation: Reports: with Family ED ROS GENERAL - Review of Systems Review Of Systems: Comprehensive ROS is negative, except as noted in HPI. ED EXAM, GENERAL - Physical Exam Exam: See Below Exam Limited By: No Limitations General Appearance: Alert, WD/WN, No Apparent Distress Eye Exam: Bilateral Eye: Normal Inspection Nose: No Blood, Nasal Drainage Throat/Mouth: Normal Inspection, Normal Lips, Normal Oropharynx, Normal Voice, No Airway Compromise Head: Atraumatic, Normocephalic Neck: Normal Inspection, Supple, Non-Tender, Full Range of Motion. No: Lymphadenopathy (L), Lymphadenopathy (R) Respiratory/Chest: No Respiratory Distress, No Accessory Muscle Use, Decreased Breath Sounds, Other (cough). No: Crackles, Rales, Rhonchi, Wheezing Cardiovascular: Regular Rate, Rhythm, No Edema GI/Abdominal: Normal Bowel Sounds, Soft, Non-Tender Back Exam: Normal Inspection Extremities: Normal Inspection, No Pedal Edema Neurological: Alert, Oriented, No Motor/Sensory Deficits Psychiatric: Normal Mood Skin Exam: Warm, Dry, Intact, Normal Color, No Rash Course - Vital Signs Last Recorded V/S: Last Vital Signs Temp 96.3 F L 07/08/21 13:12 Pulse 88 07/08/21 13:12 Resp 20 07/08/21 13:12 BP 97/64 07/08/21 13:12 Pulse Ox 94 L 07/08/21 13:12 - Orders/Labs/Meds Labs: Laboratory Tests 07/08/21 Range/Units 13:00 Influenza Type A RNA Positive H (NEGATIVE) Influenza Type B RNA Negative (NEGATIVE) SARS-CoV-2 RNA ([facility]) Negative (NEGATIVE) Meds: Medications Discontinued Medications Generic Name Dose Route Start Last Admin Trade Name Freq PRN Reason Stop Dose Admin Oseltamivir Phosphate 75 mg 07/08/21 13:51 07/08/21 13:59 Oseltamivir 75 Mg Cap PO 07/08/21 13:52 75 mg ONETIME ONE Administration Departure - Departure Time of Disposition: 14:02 Disposition: Home, Self-Care 01 Condition: Good Clinical Impression: Influenza A - Discharge Information *PRESCRIPTION DRUG MONITORING PROGRAM REVIEWED*: Not Applicable *COPY OF PRESCRIPTION DRUG MONITORING REPORT IN PATIENT NAI: Not Applicable Instructions: Influenza, Adult Forms: ED Department Discharge Additional Instructions: Rx: Tamiflu 75mg Use Tylenol (Acetaminophen) and/or Ibuprofen (Motrin/Advil) as needed for fevers or body aches. Follow directions on label for dosing and precautions. Drink plenty of water, Pedialyte, or Gatorade. Follow up in clinic or return to ER if you develop any difficulty breathing. Sepsis Event Note (ED) - Evaluation Sepsis Screening Result: No Definite Risk - Focused Exam Vital Signs: Vital Signs Temp Pulse Resp BP Pulse Ox 07/08/21 13:12 96.3 F L 88 20 97/64 94 L
[2021-07-08 13:48] LABS: CORONAVIRUS COVID-19 NAA NEGATIVE (NEGATIVE)
[2021-07-08] MEDS ORDERED: Oseltamivir 75 MG Cap PO ONE (13:51)
== END 2021-07-08 14:07 | disposition home or self-care (01) ==
LOC: DL.ED 12:56
DX: J10.1 Influenza due to other identified influenza virus with other respiratory manifestations (principal); E78.00 Pure hypercholesterolemia, unspecified; I10 Essential (primary) hypertension; M19.90 Unspecified osteoarthritis, unspecified site; M32.9 Systemic lupus erythematosus, unspecified; Z20.822 Contact with and (suspected) exposure to COVID-19; Z88.0 Allergy status to penicillin; Z88.1 Allergy status to other antibiotic agents; Z88.5 Allergy status to narcotic agent; Z88.8 Allergy status to other drugs, medicaments and biological substances; Z88.2 Allergy status to sulfonamides; Z79.899 Other long term (current) drug therapy
CPT/HCPCS: 0240U; 99283; A9270

== ENCOUNTER 2023-12-19 20:25 | Emergency (ER) | payer MEDICARE, OTHER ==
[2023-12-19 20:49] VITALS: BP 130/68; PULSE 81
[2023-12-19] MEDS: Acetaminophen 500 MG Tab PO ONE (21:06)
[2023-12-19] MEDS: Take Home: Doxycycline 100 MG Cap, 4 Cap Pack PO ONE (22:08)
== END 2023-12-19 22:14 | disposition home or self-care (01) ==
LOC: DL.ED 20:25
DX: J18.9 Pneumonia, unspecified organism (principal); I10 Essential (primary) hypertension; E78.00 Pure hypercholesterolemia, unspecified; Z90.49 Acquired absence of other specified parts of digestive tract; Z90.710 Acquired absence of both cervix and uterus; Z79.1 Long term (current) use of non-steroidal anti-inflammatories (NSAID); Z79.899 Other long term (current) drug therapy; Z88.5 Allergy status to narcotic agent; Z88.1 Allergy status to other antibiotic agents; Z88.8 Allergy status to other drugs, medicaments and biological substances
CPT/HCPCS: 71045; 87804; 99283; 99284; A9270-GY; U0002